=== PATIENT | male | born 1990 | race Caucasian/White ===

== ENCOUNTER 2019-12-16 01:04 | Emergency (ER) | payer OTHER, MEDICAID, SELFPAY ==
[2019-12-16 01:14] VITALS: BP 145/82; PULSE 103; RESP 16; TEMP 36.8; O2SAT 98
--- NOTE | 2019-12-16 01:24 | ED.GENADULT ---
HPI - General Adult General Chief complaint: Wound/Laceration Stated complaint: Lac on brow Time Seen by Provider: 12/16/19 01:10 Source: patient, EMS and police Mode of arrival: EMS Limitations: no limitations History of Present Illness HPI narrative: 29-year-old male brought in by EMS and the police for injuries that he sustained while being arrested. He has an abrasion to his left forehead and is complaining of a headache. He wanted to come in for evaluation. He denies any other injuries from the event. Related Data Allergies Allergy/AdvReac Type Severity Reaction Status Date / Time No Known Drug Allergies Allergy Verified 12/16/19 01:41 Review of Systems Constitutional Constitutional: Reports headache(s) Eyes Eyes: Denies change in vision ENT Ears, Nose, Mouth, and Throat: Reports headache(s) Integumentary/Breasts Comments: Abrasion above left eye Neurologic Neurologic: Reports headache(s) Hematologic/Lymphatic Hematologic/Lymphatic: Denies easy bleeding and Denies easy bruising Patient History Medical History Alcohol abuse (Acute) Social History lives independently: Yes Exam Initial Vital Signs Initial Vital Signs: Vital Signs Temperature 98.2 F 12/16/19 01:14 Pulse Rate 103 H 12/16/19 01:14 Respiratory Rate 16 12/16/19 01:14 Blood Pressure 145/82 H 12/16/19 01:14 Pulse Oximetry 98 12/16/19 01:14 Const General: cooperative Limitations: mental status not altered HENMT Head: abrasion Eyes Pupils: PERRL Resp Effort & Inspection: normal respiratory effort Skin Other: Abrasion above left eye Neuro General: alert and awake Speech: speech normal Extrem General: normal to inspection and capillary refill normal Course Orders Ordered: Discontinued Medications Acetaminophen (Tylenol) 650 mg PO NOW ONE Stop: 12/16/19 01:25 Last Admin: 12/16/19 01:30 Dose: 650 mg Documented by: ARLINE Bacitracin (Bacitracin) 1 applic TOP NOW ONE Stop: 12/16/19 01:25 Last Admin: 12/16/19 01:29 Dose: 1 applic Documented by: MARCUSFARMartha Diphtheria/Tetanus/Acell Pertussis (Adacel) 0.5 ml IM .ONCE ONE Stop: 12/16/19 01:11 Vital Signs Vital signs: Vital Signs - 8 hr 12/16/19 01:14 Temperature 98.2 F Pulse Rate [Left] 103 H Respiratory Rate 16 Blood Pressure [Right Arm] 145/82 H Pulse Oximetry 98 Medical Decision Making MDM Narrative Medical decision making narrative: Patient initially stated that he wanted an update his tetanus shot then declined it eventually. The abrasion above his left eye does not need intervention here in the ER. He was cleaned. Bandage placed. No need for radiologic intervention. Patient was cleared for incarceration. Discharge Plan Departure Patient Disposition: Released, Other Clinical Impression: Abrasion, Medical clearance for incarceration Headache Qualifiers: Headache type: unspecified Headache chronicity pattern: unspecified pattern Intractability: not intractable Qualified Code(s): R51 - Headache Instructions: DI for Abrasion Activity Restrictions/Additional Instructions: You can take Tylenol for your headaches. I do recommend that you keep the abrasion above your left eye clean. You can use soap and water. You can shower like normal. A regular bandage over the area would be sufficient. You are cleared for incarceration.
[2019-12-16] MEDS: BACITRACIN OINT 0.9 GM PCKT 1 APPLIC TOP (01:29)
[2019-12-16] MEDS: ACETAMINOPHEN 325 MG TABLET 650 MG PO (01:30)
[2019-12-16 01:39] VITALS: BP 149/91; PULSE 92; RESP 17; O2SAT 98
== END 2019-12-16 01:39 | disposition home or self-care (01) ==
PROVIDERS: Emergency Provider Emergency Medicine
DX: Z00.8 Encounter for other general examination (principal); S00.81XA Abrasion of other part of head, initial encounter; R51 Headache
CPT/HCPCS: 99282; 99283; 99292; 90715